=== PATIENT | male | born 1985 | race African-American/Black ===

== ENCOUNTER 2018-06-29 13:05 | Emergency (ER) | payer MEDICAID ==
[2018-06-29] MEDS ORDERED: hydrOXYzine HCL 25 MG TAB PO ONE (13:34)
[2018-06-29] MEDS ORDERED: FAMOTIDINE 20 MG TAB PO ONE (13:34)
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
[2018-06-29] MEDS ORDERED: LORazepam 1 MG TAB PO ONE (14:00)
[2018-06-29] MEDS ORDERED: KETAMINE 500 MG/10 ML VIAL IM ONE (14:35)
[2018-06-29 16:04] VITALS: BP 151/109
== END 2018-06-29 16:03 | disposition home or self-care (01) ==
DX: L29.9 Pruritus, unspecified (principal); Z87.828 Personal history of other (healed) physical injury and trauma